=== PATIENT | female | born 2000 | race Caucasian/White ===

== ENCOUNTER 2021-12-19 06:36 | Day surgery (SDC) | payer MEDICAID ==
[~2021-12-19] VITALS: Ht 149.9 cm; Wt 88.5 kg
[2021-12-19 07:45] LABS: HCG,QUAL RESULT NEGATIVE (NEGATIVE)
[2021-12-19] MEDS: MEPERIDINE 100 MG INJ. 100 MG/ML VIAL ONE ×2 (09:46→09:55)
[2021-12-19] MEDS: MIDAZOLAM HCL 5 MG/5 ML VIAL ONE ×3 (09:46→09:55)
[2021-12-19] MEDS ORDERED: BENZOCAINE 20% 0.5mL UD SPRAY MM ONE (09:48)
[2021-12-19] MEDS ORDERED: DIPHENHYDRAMINE INJ 50 MG/ML VIAL ONE (09:48)
[2021-12-19] MEDS ORDERED: ONDANSETRON HCL 4 MG/2 ML VIAL ONE (09:57)
[2021-12-19 15:32] VITALS: BP_SYST 136
== END 2021-12-19 11:30 | disposition home or self-care (01) ==
LOC: SDS 06:36 → SMU 06:41 → SDS 11:30
PROVIDERS: ATTEND Internal Medicine
DX: R11.2 Nausea with vomiting, unspecified (principal); K29.50 Unspecified chronic gastritis without bleeding; Z20.822 Contact with and (suspected) exposure to COVID-19
CPT/HCPCS: 43239; 87426; 84703; 36415; 88305; 88312; 88313; 99152; G0378; J1200; J2250; J2405; J2175